=== PATIENT | female | born 1945 | race Two or more races ===

== ENCOUNTER 2018-05-15 07:13 | Outpatient (CLI) | payer OTHER ==
[~2018-05-15 07:13] MED LIST: ASA81 MG; ATACAND32 MG PO; AVALIDE 300-12.1 TAB; CRESTOR10 MG; CRESTOR10 MG PO; DILTIAZEM ER360 MG; GLUCOPHAGE XR500 MG PO; HYZAAR 100-121 UDTAB; LIPITOR20 MG; NEURONTIN800 MG PO; PEPCID40 MG PO; PHENERGAN25 MG PO; PLAVIX75 MG PO; ZETIA10 MG; [UNRECOGNIZED DRUG - OTHER] TP
== END 2018-05-15 07:20 | disposition home or self-care (01) ==
LOC: MAMO-SONO 07:13
DX: Z12.31 Encounter for screening mammogram for malignant neoplasm of breast (principal); Z87.898 Personal history of other specified conditions; N60.21 Fibroadenosis of right breast; N60.22 Fibroadenosis of left breast

== ENCOUNTER 2019-01-19 07:10 | Outpatient (CLI) | payer OTHER | END 2019-01-19 07:25 | disposition home or self-care (01) | LOC: NUCLEAR 07:10 | DX: I25.10 Atherosclerotic heart disease of native coronary artery without angina pectoris (principal) | CPT/HCPCS: 78452; 93017; A9500 ==

== ENCOUNTER 2019-06-07 07:44 | Outpatient (CLI) | payer OTHER | END 2019-06-07 07:47 | disposition home or self-care (01) | LOC: MAMO-SONO 07:44 | DX: Z12.31 Encounter for screening mammogram for malignant neoplasm of breast (principal); N60.11 Diffuse cystic mastopathy of right breast; N60.12 Diffuse cystic mastopathy of left breast; Z87.898 Personal history of other specified conditions; Z09 Encounter for follow-up examination after completed treatment for conditions other than malignant neoplasm ==

== ENCOUNTER 2020-07-10 07:26 | Outpatient (CLI) | payer OTHER | END 2020-07-10 11:46 | disposition home or self-care (01) | LOC: NUCLEAR 07:26 | PROVIDERS: ATTEND Internal Medicine Gastroenterology | DX: K31.84 Gastroparesis (principal) | CPT/HCPCS: 78264; A9541 ==

== ENCOUNTER 2020-10-09 16:34 | Outpatient (CLI) | payer OTHER | END 2020-10-09 17:20 | disposition home or self-care (01) | LOC: OFIC 805 16:34 | PROVIDERS: ATTEND Otolaryngology Otology & Neurotology | DX: R09.82 Postnasal drip (principal); J32.8 Other chronic sinusitis; L50.8 Other urticaria; H60.543 Acute eczematoid otitis externa, bilateral ==

== ENCOUNTER 2020-10-31 13:21 | Outpatient (CLI) | payer OTHER | END 2020-10-31 13:53 | disposition home or self-care (01) | LOC: MAMO-SONO 13:21 | PROVIDERS: ATTEND Specialist | DX: R92.2 Inconclusive mammogram (principal); N64.59 Other signs and symptoms in breast ==

== ENCOUNTER 2020-12-27 09:09 | Outpatient (CLI) | payer OTHER | END 2020-12-27 10:03 | disposition home or self-care (01) | LOC: OFIC 805 09:09 | PROVIDERS: ATTEND Otolaryngology Otology & Neurotology | DX: J31.0 Chronic rhinitis (principal); R09.82 Postnasal drip; J32.8 Other chronic sinusitis; H60.543 Acute eczematoid otitis externa, bilateral ==

== ENCOUNTER → 2020-12-28 | Outpatient (CLI) | payer OTHER | END | disposition home or self-care (01) | LOC: MAMO-SONO 08-21 12:15 | PROVIDERS: ATTEND Internal Medicine Pulmonary Disease | DX: I26.99 Other pulmonary embolism without acute cor pulmonale (principal) | CPT/HCPCS: 78580; A9540 ==

== ENCOUNTER 2021-08-20 13:48 | Emergency (ER) | payer OTHER ==
[~2021-08-20] VITALS: Ht 157.5 cm; Wt 68.0 kg
[2021-08-20] MEDS ORDERED: PEPCID AC20 MG PO (16:58)
[2021-08-20] MEDS ORDERED: ZOFRAN8 MG PO (16:58)
[2021-08-20] MEDS ORDERED: KLOR-CON M1010 MEQ PO (17:23)
== END 2021-08-20 18:00 | disposition home or self-care (01) ==
LOC: ER 13:48
DX: R53.81 Other malaise (principal); Z11.52 Encounter for screening for COVID-19

== ENCOUNTER 2022-02-11 09:01 | Emergency (ER) | payer OTHER ==
[~2022-02-11] VITALS: Ht 154.9 cm; Wt 68.0 kg
[~2022-02-11 09:01] MED LIST changes: +KLOR-CON M1010 MEQ PO; +PEPCID AC20 MG PO; +ZOFRAN8 MG PO
[2022-02-11] MEDS ORDERED: HYDRALAZINE HCL25 MG (09:14)
[2022-02-11] MEDS ORDERED: NORFLEX100MG PO (10:53)
[2022-02-11] MEDS ORDERED: DICLOFENAC SODI50 MG PO (10:53)
== END 2022-02-11 11:36 | disposition home or self-care (01) ==
LOC: ER 09:01
DX: M54.9 Dorsalgia, unspecified (principal); Z88.0 Allergy status to penicillin; Z91.013 Allergy to seafood

== ENCOUNTER 2022-04-03 09:00 | Outpatient (CLI) | payer OTHER ==
[~2022-04-03 09:00] MED LIST changes: +DICLOFENAC SODI50 MG PO; +HYDRALAZINE HCL25 MG; +NORFLEX100MG PO
== END 2022-04-03 09:02 | disposition home or self-care (01) ==
LOC: MAMO-SONO 09:00
PROVIDERS: ATTEND Specialist
DX: D24.9 Benign neoplasm of unspecified breast (principal)

== ENCOUNTER 2024-04-30 20:50 | Emergency (ER) | payer OTHER ==
[~2024-04-30] VITALS: Ht 154.9 cm; Wt 70.8 kg
[2024-04-30 22:27] LABS: INR 0.97; PROTHROMBIN TIME 10.6 SECONDS (9.0-11.5)
== END 2024-04-30 22:40 | disposition home or self-care (01) ==
LOC: ER 20:51
PROVIDERS: General Practice
DX: H11.32 Conjunctival hemorrhage, left eye (principal); Z88.0 Allergy status to penicillin; Z91.013 Allergy to seafood; Z88.8 Allergy status to other drugs, medicaments and biological substances